=== PATIENT | male | born 1940 | race Hispanic/Latino ===

== ENCOUNTER 2023-05-18 11:47 | Inpatient (IN) | payer OTHER ==
[2023-05-18] MEDS ORDERED: METOPROLOL TARTRATE 5 MG/5 ML INJ IV ONE (12:03)
[2023-05-18] MEDS ORDERED: NA CHLORIDE 0.9% 500 ML ONE (12:04)
[2023-05-18 12:37] LABS: Absolute Lymphocytes (CBC) 0.6 K/uL (0.7-4.9); Absolute Monocytes 1.4 K/uL (0.1-1.3); Absolute Neutrophil 13.1 K/uL (1.8-8.0); Basophils % 0.3 % (0-1.3); Hematocrit 30.7 % (39.6-49.0); Hemoglobin 9.8 g/dL (13.6-17.9); Lymphocytes % 3.9 % (15.3-44.8); MCH 27.6 pg (27.0-35.0); MCHC 31.8 g/dL (32.0-36.0); MCV 86.7 fL (80-100); MPV 8.5 fL (7.6-11.3); Monocytes % 9.2 % (3.3-12.3); Neutrophils % 86.6 % (41.7-73.7); Platelets 160 thou/uL (152-406); RBC Red Blood Cell Count 3.54 M/uL (4.33-5.43); Red Cell Distribution Width 18.9 % (12.1-15.2)
--- NOTE | 2023-05-18 12:51 | RAD REPORT ---
EXAM DESCRIPTION: RAD - Chest Single View - 05/18/2023 12:37 pm CLINICAL HISTORY: weakness Chest pain. COMPARISON: No comparisons FINDINGS: Portable technique limits examination quality. The lungs are grossly clear. The heart is moderately enlarged. No displaced fractures.Multi lead pace r device is present. IMPRESSION: No acute intrathoracic process suspected.
[2023-05-18 12:54] LABS: Albumin 2.7 g/dL (3.4-5.0); Albumin/Globulin Ratio 0.7 (1.1-1.8); Anion Gap 7.5 mEq/L (5.0-15.0); Bilirubin Direct 0.5 mg/dL (0-0.2); Bilirubin Indirect, Calculated 0.9 mg/dL (0.2-0.8); Bilirubin Total 1.4 mg/dL (0.2-1.0); Globulin 3.9 g/dL (2.3-3.5); Magnesium 2.1 mg/dL (1.6-2.4); Potassium 3.5 mEq/L (3.5-5.1); Protein, Total 6.6 g/dL (6.4-8.2)
[2023-05-18 13:33] LABS: White Blood Cell Scan OK (OK)
[2023-05-18 13:34] LABS: Blood Morphology Comment NOT SEEN (NOT SEEN); Platelet Estimate ADEQ
[2023-05-18] MEDS ORDERED: AMIODARONE HCL 150 MG/3 ML INJ IV ONE (13:39)
[2023-05-18] MEDS ORDERED: AMIODARONE IN DEXTROSE,ISO-OSM 360 MG/200 ML BAG IV ONE ×2 (13:39→19:30)
[2023-05-18] MEDS ORDERED: D5W 100 ML IV ONE (13:41)
[2023-05-18] MEDS ORDERED: ACETAMINOPHEN 500 MG TAB PO PRN (14:24)
[2023-05-18] MEDS ORDERED: ONDANSETRON 4 MG/2 ML VIAL IV PRN (14:24)
--- NOTE | 2023-05-18 14:29 | EDPHYS ---
Physician Documentation [facility] Name: Inderjit Yusuf Age: 83 yrs Sex: Male : 1940 Arrival Date: 05/18/2023 Time: 11:47 Bed 3 Private MD: ED Physician Isrrael Salas HPI: 05/17 14:21 This 83 yrs old Male presents to ER via EMS with complaints of General rt Weakness. 14:21 Patient presents to the ED with generalized weakness. Does have a history of A-fib. rt Denies shortness of breath, chest pain. This occurred about 2 weeks following a biopsy of the prostate, is been progressively worsening. Denies other acute complaints at this time, symptoms are moderate severity, no other aggravating or alleviating factors.. Historical: - Allergies: 11:55 No Known Allergies; rs5 - Home Meds: 12:31 Amiodarone Oral [Active]; Aspirin Oral [Active]; Bumetanide Oral [Active]; Benadryl ph Oral [Active]; Eliquis oral [Active]; levothyroxine oral [Active]; Lisinopril Oral [Active]; Metoprolol Tartrate Oral [Active]; Potassium Chloride Oral [Active]; - PMHx: 11:55 Hypertensive disorder; Congestive heart failure; Atrial fibrillation; rs5 - PSHx: 11:55 Pacemaker 2 months ago; rs5 - Immunization history:: Adult Immunizations up to date. - Infectious Disease History:: Denies. - Social history:: Smoking status: Patient denies any tobacco usage or history of. - Family history:: not pertinent. ROS: 14:21 Constitutional: Negative for fever, chills, and weight loss, Cardiovascular: Negative rt for chest pain, palpitations, and edema, Respiratory: Negative for shortness of breath, cough, wheezing, and pleuritic chest pain, Abdomen/GI: Negative for abdominal pain, nausea, vomiting, diarrhea, and constipation, MS/Extremity: Negative for injury and deformity, Skin: Negative for injury, rash, and discoloration, Psych: Negative for depression, anxiety, suicide ideation, homicidal ideation, and hallucinations, 14:21 Neuro: Positive for weakness, Negative for altered mental status, Exam: 14:21 Constitutional: This is a well developed, well nourished patient who is awake, alert, rt and in no acute distress. Head/Face: Normocephalic, atraumatic. Chest/axilla: Normal chest wall appearance and motion. Nontender with no deformity. No lesions are appreciated. Cardiovascular: Regular rate and rhythm with a normal S1 and S2. No gallops, murmurs, or rubs. Normal PMI, no JVD. No pulse deficits. Respiratory: Lungs have equal breath sounds bilaterally, clear to auscultation and percussion. No rales, rhonchi or wheezes noted. No increased work of breathing, no retractions or nasal flaring. Abdomen/GI: Soft, non-tender, with normal bowel sounds. No distension or tympany. No guarding or rebound. No evidence of tenderness throughout. Skin: Warm, dry with normal turgor. Normal color with no rashes, no lesions, and no evidence of cellulitis. MS/ Extremity: Pulses equal, no cyanosis. Neurovascular intact. Full, normal range of motion. Neuro: Awake and alert, GCS 15, oriented to person, place, time, and situation. Cranial nerves II-XII grossly intact. Motor strength 5/5 in all extremities. Sensory grossly intact. Cerebellar exam normal. Normal gait. 14:23 ECG was reviewed by the Attending Physician. rt Vital Signs: 11:55 BP 110 / 80; Pulse 155; Resp 18; rs5 12:22 BP 102 / 71; Pulse 104; Resp 18; Pulse Ox 98% on R/A; ph 12:55 BP 116 / 77; Pulse 104; Resp 16; Pulse Ox 99% ; ko1 13:50 BP 102 / 84; Pulse 124; Resp 24; Pulse Ox 100% ; ko1 MDM: 11:55 Patient medically screened. rt 14:29 Differential Diagnosis A-fib, anemia, electrolyte disturbance. Data reviewed: vital rt signs, nurses notes, lab test result(s), EKG, radiologic studies. Consideration of Admission/Observation Patient was admitted/placed on observation. Management of patient was discussed with the following: Hospitalist: Agrees to admit. I considered the following discharge prescriptions or medication management in the emergency department Medications were administered in the Emergency Department. See MAR. Independent interpretation of the following test(s) in the Emergency Department X-Ray: My interpretation is No consolidation seen on my interpretation of x-ray images. Care significantly affected by the following chronic conditions: Atrial fibrillation. Counseling: I had a detailed discussion with the patient and/or guardian regarding the historical points, exam findings, and any diagnostic results supporting the discharge/admit diagnosis, lab results, radiology results, the need for further work-up and treatment in the hospital. Response to treatment: the patient's symptoms have mildly improved after treatment. 05/17 12:04 Order name: Basic Metabolic Panel; Complete Time: 13:06 rt 05/17 12:04 Order name: CBC with Diff; Complete Time: 14:03 rt 05/17 12:04 Order name: LFT's; Complete Time: 13:06 rt 05/17 12:04 Order name: Magnesium; Complete Time: 13:06 rt 05/17 12:04 Order name: Troponin HS; Complete Time: 13:06 rt 05/17 12:04 Order name: BNP; Complete Time: 13:06 rt 05/17 12:04 Order name: UAM; Complete Time: 20:34 rt 05/17 12:49 Order name: CBC Smear Scan; Complete Time: 14:03 EDMS 05/17 14:34 Order name: Thyroid Stimulating Hormone; Complete Time: 20:34 EDMS 05/17 14:34 Order name: Basic Metabolic Panel EDMS 05/17 14:34 Order name: Basic Metabolic Panel EDMS 05/17 14:34 Order name: Basic Metabolic Panel EDMS 05/17 14:34 Order name: Basic Metabolic Panel EDMS 05/17 14:34 Order name: Basic Metabolic Panel EDMS 05/17 14:34 Order name: CBC with Automated Diff EDMS 05/17 14:34 Order name: CBC with Automated Diff EDMS 05/17 14:34 Order name: CBC with Automated Diff EDMS 05/17 14:34 Order name: CBC with Automated Diff EDMS 05/17 14:34 Order name: CBC with Automated Diff EDMS 05/17 14:34 Order name: Lipid Profile EDMS 05/17 14:34 Order name: Lipid Profile EDMS 05/17 14:34 Order name: Magnesium EDMS 05/17 14:34 Order name: Magnesium EDMS 05/17 14:34 Order name: Magnesium EDMS 05/17 14:34 Order name: Magnesium EDMS 05/17 14:34 Order name: Magnesium EDMS 05/17 14:34 Order name: NT PRO-BNP EDMS 05/17 14:34 Order name: NT PRO-BNP EDMS 05/17 14:34 Order name: NT PRO-BNP EDMS 05/17 14:34 Order name: NT PRO-BNP EDMS 05/17 14:34 Order name: NT PRO-BNP EDMS 05/17 14:34 Order name: Troponin High Sensitivity EDMS 05/17 14:34 Order name: Troponin High Sensitivity; Complete Time: 20:34 EDMS 05/17 14:34 Order name: Troponin High Sensitivity EDMS 05/17 14:34 Order name: Troponin High Sensitivity EDMS 05/17 19:48 Order name: T4 Free; Complete Time: 20:34 EDMS 05/18 14:13 Order name: Cortisol EDMS 05/17 12:04 Order name: XRAY Chest (1 view); Complete Time: 12:53 rt 05/18 12:07 Order name: US EDMS 05/17 14:26 Order name: CONS Physician Consult EDMS 05/17 14:33 Order name: EKG Electrocardiogram EDMS 05/17 14:34 Order name: EKG Electrocardiogram EDMS 05/17 14:34 Order name: EKG Electrocardiogram EDMS 05/17 14:34 Order name: EKG Electrocardiogram EDMS 05/17 12:04 Order name: Cardiac monitoring; Complete Time: 12:09 rt 05/17 12:04 Order name: EKG - Nurse/Tech; Complete Time: 12:21 rt 05/17 12:04 Order name: IV Saline Lock; Complete Time: 12:10 rt 05/17 12:04 Order name: Labs collected and sent; Complete Time: 12:21 rt 05/17 12:04 Order name: O2 Per Protocol; Complete Time: 12:09 rt 05/17 12:04 Order name: O2 Sat Monitoring; Complete Time: 12:09 rt EC:23 Rate is 151 beats/min. Rhythm is irregularly irregular, A fib with No ectopy, Right rt related ST and T wave changes. QRS [place] is Normal. QRS interval is normal. QT interval is normal. No Q waves. Administered Medications: 12:10 Drug: NS 0.9% IV 500 ml IV at bolus once Route: IV; Rate: bolus; Site: right forearm; ph 12:40 Follow up: IV Intake: 500ml ; administered by previous nurse vc1 12:40 Follow up: IV Status: Completed infusion; IV Intake: 500ml vc1 12:10 Drug: Metoprolol IVP 5 mg IVP every 5 minutes; Hold for SBP < 100 or HR < 60. x3 Route: ph IVP; Site: right forearm; 12:21 Drug: Metoprolol IVP 5 mg IVP every 5 minutes; Hold for SBP < 100 or HR < 60. x3 Route: ph IVP; Site: right forearm; 22:11 Follow up: Response: No adverse reaction; No change in condition vc1 13:46 Drug: amiodarone IVPB 150 mg 100 ml IVPB once over 10 mins; (mix in D5W) Volume: 100 ko1 ml; Route: IVPB; Infused Over: 10 mins; Site: right forearm; 22:10 Follow up: IV Status: Completed infusion; administered by previous shift; no change in vc1 condition 13:57 Drug: amiodarone IVPB 900 mg, D5W IV 500 ml IVPB at 1 mg/min continuous; for 6 hrs, ko1 then change to 0.5 mg/min Route: IVPB; Rate: 1 mg/min; Site: right forearm; 19:00 Follow up: IV Status: Infusion continued upon admission vc1 Disposition Summary: 05/18/23 14:28 Hospitalization Ordered Notes: Hospitalization Status: Inpatient Admission rt Provider: Stephanie Melendrez rt Condition: Fair rt Problem: an acute exacerbation rt Symptoms: have improved rt Bed/Room Type: Standard rt Location: Intensive Care Unit(05/19/23 15:10) bd Room Assignment: 3-(05/19/23 15:10) bd Diagnosis - Atrial fibrillation with rapid ventricular rate rt Forms: - Medication Reconciliation Form rt - SBAR form rt - Leadership Thank You Letter rt Critical care time excluding procedures: 14:34 Critical care time: Bedside Care: 30 minutes, Consultation: 5 minutes. Total time: 35 rt minutes Signatures: Dispatcher [employer] Aggie Puri Patricia, RN RN ph Rae Parrish RN RN ko1 Isrrael Salas MD MD rt Dante Morales RN RN rs5 Arlene Prince RN vc1 Corrections: (The following items were deleted from the chart) 12:04 12:04 BASIC METABOLIC PANEL+C.LAB.BRZ ordered. EDMS EDMS 12:04 12:04 CBC+H.LAB.BRZ ordered. EDMS EDMS 12:04 12:04 HEPATIC FUNCTION+C.LAB.BRZ ordered. EDMS EDMS 12:04 12:04 MAGNESIUM+C.LAB.BRZ ordered. EDMS EDMS 12:04 12:04 Troponin High Sensitivity+C.LAB.BRZ ordered. EDMS EDMS 12:04 12:04 PROBNP+C.LAB.BRZ ordered. EDMS EDMS 12:04 12:04 Urinalysis W/Microscopic+U.LAB.BRZ ordered. EDMS EDMS 12:04 12:04 Chest Single View+RAD.RAD.BRZ ordered. EDMS EDMS 18:38 14:28 Intensive Care Unit rt bd 18:38 14:28 rt bd 05/18 15:10 05/17 18:38 BR ER HOLD bd bd 05/18 15:10 05/17 18:38 ERHOLD- bd bd
--- NOTE | 2023-05-18 14:29 | ER ---
Nurse's Notes [facility] Name: Inderjit Yusuf Age: 83 yrs Sex: Male : 1940 Arrival Date: 05/18/2023 Time: 11:47 Bed 3 Private MD: Diagnosis: Atrial fibrillation with rapid ventricular rate Presentation: 05/17 11:55 Chief complaint: EMS states: Complains of generalized weakness that started post rs5 prostate biopsy 2 weeks ago. Pt had a pacemaker inserted 2 months ago. 11:55 Coronavirus screen: At this time, the client does not indicate any symptoms associated rs5 with coronavirus-19. Ebola Screen: No symptoms or risks identified at this time. Initial Sepsis Screen: Does the patient meet any 2 criteria? No. Patient's initial sepsis screen is negative. Does the patient have a suspected source of infection? No. Patient's initial sepsis screen is negative. Risk Assessment: Do you want to hurt yourself or someone else? Patient reports no desire to harm self or others. Onset of symptoms was May 18, 2023. 11:55 Method Of Arrival: EMS: [place] [id number] 11:55 Acuity: SARITA 2 rs5 12:07 Acuity: SARITA 2 iw 12:08 Coronavirus screen: Vaccine status: Patient reports receiving the 2nd dose of the covid ph vaccine. Ebola Screen: No symptoms or risks identified at this time. Initial Sepsis Screen: Does the patient meet any 2 criteria? No. Patient's initial sepsis screen is negative. Does the patient have a suspected source of infection? No. Patient's initial sepsis screen is negative. Risk Assessment: Do you want to hurt yourself or someone else? Patient reports no desire to harm self or others. 12:08 Method Of Arrival: EMS: [place] [facility] Historical: - Allergies: 11:55 No Known Allergies; rs5 - Home Meds: 12:31 Amiodarone Oral [Active]; Aspirin Oral [Active]; Bumetanide Oral [Active]; Benadryl ph Oral [Active]; Eliquis oral [Active]; levothyroxine oral [Active]; Lisinopril Oral [Active]; Metoprolol Tartrate Oral [Active]; Potassium Chloride Oral [Active]; - PMHx: 11:55 Hypertensive disorder; Congestive heart failure; Atrial fibrillation; rs5 - PSHx: 11:55 Pacemaker 2 months ago; rs5 - Immunization history:: Adult Immunizations up to date. - Infectious Disease History:: Denies. - Social history:: Smoking status: Patient denies any tobacco usage or history of. - Family history:: not pertinent. Screenin:23 [facility] ED Fall Risk Assessment (Adult) History of falling in the last 3 months, ph including since admission No falls in past 3 months (0 pts) Confusion or Disorientation No (0 pts) Intoxicated or Sedated No (0 pts) Impaired Gait Yes (1 pt) Mobility Assist Device Used Yes (1 pt) Altered Elimination No (0 pt) Score/Fall Risk Level 0 - 2 = Low Risk Oriented to surroundings, Maintained a safe environment, Hourly rounding (assess needs \T\ fall precautionary measures) done. Abuse screen: Denies threats or abuse. Denies injuries from another. Nutritional screening: No deficits noted. Tuberculosis screening: No symptoms or risk factors identified. Assessment: 12:30 General: Appears in no apparent distress. Behavior is calm, cooperative. Pain: Denies ph pain. Neuro: Level of Consciousness is awake, alert, obeys commands, Oriented to person, place, time, situation. Cardiovascular: Reports fatigue, lightheadedness, Capillary refill < 3 seconds in bilateral fingers Patient's skin is warm and dry. Rhythm is atrial fibrillation with rapid ventricular response. Respiratory: Airway is patent Respiratory effort is even, unlabored. Derm: Skin is dry, Skin is pale. Musculoskeletal: Circulation, motion, and sensation intact. Range of motion: intact in all extremities. 05/18 12:23 Reassessment: Myranda Major - [phone]. ld1 Vital Signs: 04 11:55 BP 110 / 80; Pulse 155; Resp 18; rs5 12:22 BP 102 / 71; Pulse 104; Resp 18; Pulse Ox 98% on R/A; ph 12:55 BP 116 / 77; Pulse 104; Resp 16; Pulse Ox 99% ; ko1 13:50 BP 102 / 84; Pulse 124; Resp 24; Pulse Ox 100% ; ko1 Vitals: 12:22 Cardiac Rhythm Assessment Atrial fibrillation. ph ED Course: 11:54 Patient arrived in ED. iw 11:55 Isrrael Salas MD is Attending Physician. rt 12:07 Triage completed. iw 12:08 Jennifer Smart, RN is Primary Nurse. ph 12:22 Initial lab(s) drawn, by me, sent to lab. Maintain EMS IV. Dressing intact. Good blood ph return noted. Site clean \T\ dry. Gauge \T\ site: 20 RFA. 12:23 Patient has correct armband on for positive identification. Bed in low position. Call ph light in reach. Side rails up X2. Client placed on continuous cardiac and pulse oximetry monitoring. NIBP monitoring applied. monitor tech on. Door closed. Noise minimized. Warm blanket given. 12:31 Arm band placed on Patient placed in an exam room. ph 12:39 XRAY Chest (1 view) In Process Unspecified. EDMS 13:50 No provider procedures requiring assistance completed. ko1 13:50 Provided Education on: na. ko1 14:27 Stephanie Melendrez MD is Hospitalizing Provider. rt 14:30 Patient admitted, IV remains in place. ko1 19:22 Inserted saline lock: 22 gauge in left forearm, using aseptic technique. ty 05/18 07:02 Primary Nurse role handed off by Jennifer Smart, RN bd 08:02 Diet tray given. jg11 12:44 Diet tray given. jg11 Administered Medications: 04 12:10 Drug: NS 0.9% IV 500 ml IV at bolus once Route: IV; Rate: bolus; Site: right forearm; ph 12:40 Follow up: IV Intake: 500ml ; administered by previous nurse vc1 12:40 Follow up: IV Status: Completed infusion; IV Intake: 500ml vc1 12:10 Drug: Metoprolol IVP 5 mg IVP every 5 minutes; Hold for SBP < 100 or HR < 60. x3 Route: ph IVP; Site: right forearm; 12:21 Drug: Metoprolol IVP 5 mg IVP every 5 minutes; Hold for SBP < 100 or HR < 60. x3 Route: ph IVP; Site: right forearm; 22:11 Follow up: Response: No adverse reaction; No change in condition vc1 13:46 Drug: amiodarone IVPB 150 mg 100 ml IVPB once over 10 mins; (mix in D5W) Volume: 100 ko1 ml; Route: IVPB; Infused Over: 10 mins; Site: right forearm; 22:10 Follow up: IV Status: Completed infusion; administered by previous shift; no change in vc1 condition 13:57 Drug: amiodarone IVPB 900 mg, D5W IV 500 ml IVPB at 1 mg/min continuous; for 6 hrs, ko1 then change to 0.5 mg/min Route: IVPB; Rate: 1 mg/min; Site: right forearm; 19:00 Follow up: IV Status: Infusion continued upon admission vc1 Medication: 12:23 VIS not applicable for this client. ph Intake: 12:40 IV: 500ml; Total: 500ml. vc1 12:40 IV: 500ml; Total: 1000ml. vc1 Outcome: 14:28 Decision to Hospitalize by Provider. rt 14:30 Admitted to ER Hold. [facility] documentation. ko1 14:30 Condition: stable 14:30 Instructed on the need for admit, 05/18 16:27 Patient left the ED. ld1 Signatures: Dispatcher [employer] EDMS Aggie Wilson Irene, RN RN iw Jennifer Smart RN RN Rosalia Buckley RN RN ld1 Arlene Prince RN RN vc1 Rae Parrish RN RN ko1 Isrrael Salas MD MD rt Dante Morales RN RN Tho [facility] [place] [place] Tony Olivo Corrections: (The following items were deleted from the chart) 05/17 12:21 11:00 NS 0.9% IV 500 ml IV at bolus in right forearm ph ph
--- NOTE | 2023-05-18 14:34 | P.HP ---
Certification for Inpatient Patient admitted to: Inpatient With expected LOS: <2 Midnights <Zarina Troy - Last Filed: 05/18/23 16:32> Patient History Date of Service: 05/18/23 Reason for admission: A-fib RVR History of Present Illness: 83-year-old with a past medical history of A-fib RVR on Eliquis, with permanent pacemaker, congestive heart failure, hypothyroidism hypertension, hyperlipidemia, primary urethral carcinoma, presents to the emergency room with generalized weakness. He reports weakness x 4 weeks, progressively getting worse, he reports shortness of breath, worse with exertion. He reports bilateral lower extremity edema +1-2 work worse over the last couple weeks. He reports lives with his daughter, ambulates with a cane at baseline. ER evaluation patient was EKG A-fib rate 160, treated with metoprolol IV push, ineffective, started on amiodarone drip. No reported chest pain, abdominal pain, fever, nausea vomiting diarrhea, dizziness. Plan to admit for A-fib RVR with uncontrolled rate, acute on chronic heart failure, dyspnea secondary to decompensated heart failure. With cardiology to consult. Laboratory evaluation acute kidney injury unknown baseline BUN 1.31 estimated GFR 54 elevated BNP 95409, initial troponin normal at 41, leukocytosis 15.10, microcytic anemia 9.1 30.7, left shift 86.6, chest x-ray no acute intrathoracic process moderate cardiomegaly multilead pacer device present - Past Medical/Surgical History -: A-fib RVR -: Chronic anticoagulation Eliquis 5 mg twice daily -: Hypertension -: Hyperlipidemia -: Primary urethral carcinoma -: Permanent pacemaker - Family History Family History: Reviewed- Non-Contributory - Social History Smoking Status: Never smoker Alcohol use: No CD- Drugs: Yes Caffeine use: No Place of Residence: Home <Zarina Troy - Last Filed: 05/18/23 16:32> Date of Service: 05/18/23 <Stephanie Melendrez - Last Filed: 05/21/23 10:18> Allergies No Known Allergies Allergy (Unverified 05/18/23 14:46) Review of Systems PER HPI <Zarina Troy - Last Filed: 05/18/23 16:32> Physical Examination - Physical Exam General: Alert, In no apparent distress, Oriented x3 HEENT: Atraumatic, Normocephalic Neck: Supple, 2+ carotid pulse no bruit Respiratory: Normal air movement, Crackles/rales Cardiovascular: Irregular heart rate/rhythm Capillary refill: <2 Seconds Gastrointestinal: Normal bowel sounds, Soft and benign Musculoskeletal: No clubbing, No swelling Integumentary: Other (+1 lower extremity edema) Neurological: Normal speech, Sensation intact - Studies Laboratory Data (last 24 hrs) 05/18/23 05/18/23 12:20 12:20 WBC 15.10 H Hgb 9.8 L Hct 30.7 L Plt Count 160 Sodium 134 L Potassium 3.5 BUN 16 Creatinine 1.31 H Glucose 113 H Magnesium 2.1 Total Bilirubin 1.4 H AST 25 ALT 31 Alkaline Phosphatase 57 <Zarina Troy - Last Filed: 05/18/23 16:32> Assessment and Plan - Plan Assessment plan A-fib RVR uncontrolled rate Chronic anticoagulation History of a permanent pacemaker Admit to ICU, cardiology consult, amiodarone drip, IV metoprolol, resume p.o. medications. Acute on chronic heart failure unknown based Elevated BNP Echo ordered No reported chest pain, abdominal pain, fever, nausea vomiting diarrhea, dizziness. Plan to admit for A-fib RVR with uncontrolled rate, acute on chronic heart failure, dyspnea secondary to decompensated heart failure. With cardiology to consult. presents to the emergency room with generalized weakness. He reports weakness x 4 weeks, progressively getting worse, he reports shortness of breath, worse with exertion. He reports bilateral lower extremity edema +1-2 work worse over the last couple weeks. He reports lives with his daughter, ambulates with a cane at baseline. ER evaluation patient was EKG A-fib rate 160, treated with metoprolol IV push, ineffective, started on amiodarone drip. elevated BNP 72023, -> diuresis as tolerated initial troponin normal at 41,-> chest x-ray no acute intrathoracic process moderate cardiomegaly multilead pacer device present hypothyroidism hypertension hyperlipidemia primary urethral carcinoma Acute kidney injury Unknown baseline BUN 1.31 estimated GFR 54 Nephrology consult leukocytosis likely reactive to decompensated heart failure WBC 15.10, left shift 86.6 Trend WBCs empiric microcytic anemia Hemoglobin 9.1 30.7 Full code DVT resume Eliquis Diet cardiac Disposition Home with daughter, ambulates with a cane at baseline Discharge Plan: Home - Advance Directives Does patient have a Living Will: No Does patient have a Durable POA for Healthcare: No - Code Status/Comfort Care Code Status: Full Code Critical Care: Yes Time Spent Managing Pts Care (In Minutes): 65 <Zarina Troy - Last Filed: 05/18/23 16:32> Date of Service: 05/18/23 Patient chart was reviewed and patient was seen and examined. AZUL history and physical reviewed as well. Agree with the assessment and plan. Patient presented with atrial fibrillation patient's rate controlled on amiodarone drip along with digoxin and beta-charleen therapy. Most of the MDM was done by myself and plan of care was discussed with AZUL. Plan to discharge when cardiology agreeable-anticipated length of stay is 3 to 4 days. <Stephanie Melendrez - Last Filed: 05/21/23 10:18>
[2023-05-18] MEDS ORDERED: AMIODARONE HCL 450 MG in D5W 241 ML IV SCH (15:00)
[2023-05-18] MEDS ORDERED: AMIODARONE HCL 900 MG in Dextrose 5%-Water 482 ML IV SCH (15:00)
[2023-05-18 16:47] LABS: Sqamous Epithelial <5 /HPF (None Seen); Urine Bacteria >50 /HPF (<20); Urine Culture Reflex Order REFLEXED; Urine Micro Reflex YN NO BILL MICROSCOPIC; Urine Mucus Slight /HPF (None Seen); Urine RBC >50 /HPF (None Seen); Urine WBC >50 /HPF (<5)
[2023-05-18 16:48] LABS: Specific Gravity 1.012 (1.005-1.030); Urine Bilirubin NEGATIVE (Negative); Urine Blood 3+ (OVER) (Negative); Urine Clarity Extremely Turbid (Clear); Urine Color Yellow (Yellow); Urine Glucose NEGATIVE (Negative); Urine Ketones NEGATIVE (Negative); Urine Nitrite NEGATIVE (Negative); Urine Protein 2+ (Negative); Urine Urobilinogen Normal (Normal)
[2023-05-18] MEDS ORDERED: CEFTRIAXONE 1000 MG/VIAL ONE (16:54)
[2023-05-18] MEDS ORDERED: NA CHLORIDE 0.9% 50 ML ONE (16:55)
[2023-05-18] MEDS ORDERED: FUROSEMIDE 40 MG/4 ML VIAL ONE (16:55)
[2023-05-18] MEDS: AMIODARONE HCL 900 MG in Dextrose 5%-Water 482 ML IV SCH (19:30)
[2023-05-18 19:34] LABS: Thyroid Stimulating Hormone 4.52 uIU/mL (0.358-3.740)
[2023-05-18] MEDS: FUROSEMIDE 40 MG/4 ML VIAL IV ONE (19:54)
[2023-05-18] MEDS: CEFTRIAXONE 1,000 MG in NA CHLORIDE 0.9% 50 ML IVPB SCH (19:54)
[2023-05-18] MEDS ORDERED: METOPROLOL TARTRATE 5 MG/5 ML INJ IV PRN (20:11)
[2023-05-18] MEDS: METOPROLOL TAR 50 MG TAB PO SCH (20:23)
[2023-05-18] MEDS: APIXABAN 5 MG TABLET PO SCH (20:23)
[2023-05-18] MEDS: METOPROLOL TARTRATE 5 MG/5 ML INJ IV STA (20:35)
[2023-05-18 20:42] VITALS: BMI 36.9
[2023-05-19 05:17] LABS: Absolute Basophils 0.1 K/uL (0-0.5); Absolute Lymphocytes (CBC) 0.8 K/uL (0.7-4.9); Absolute Monocytes 0.9 K/uL (0.1-1.3); Absolute Neutrophil 13.7 K/uL (1.8-8.0); Basophils % 0.3 % (0-1.3); Eosinophils % 0.1 % (0-4.4); Hematocrit 32.7 % (39.6-49.0); Hemoglobin 10.2 g/dL (13.6-17.9); Lymphocytes % 5.4 % (15.3-44.8); MCH 27.1 pg (27.0-35.0); MCHC 31.4 g/dL (32.0-36.0); MCV 86.5 fL (80-100); MPV 8.7 fL (7.6-11.3); Monocytes % 5.8 % (3.3-12.3); Platelets 157 thou/uL (152-406); RBC Red Blood Cell Count 3.78 M/uL (4.33-5.43); Red Cell Distribution Width 19.1 % (12.1-15.2)
[2023-05-19 05:21] LABS: Neutrophils % 88.4 % (41.7-73.7)
[2023-05-19 05:32] LABS: Anion Gap 10.4 mEq/L (5.0-15.0); Magnesium 2.1 mg/dL (1.6-2.4); Potassium 3.4 mEq/L (3.5-5.1)
[2023-05-19] MEDS ORDERED: AMIODARONE IN DEXTROSE,ISO-OSM 360 MG/200 ML BAG IV ONE (06:17)
[2023-05-19] MEDS ORDERED: APIXABAN 5 MG TABLET ONE (07:37)
[2023-05-19] MEDS ORDERED: METOPROLOL TAR 50 MG TAB ONE (07:37)
[2023-05-19] MEDS ORDERED: ASPIRIN 81 MG CHEWABLE TABLET ONE (07:38)
[2023-05-19] MEDS: ASPIRIN 81 MG CHEWABLE TABLET PO SCH (08:31)
[2023-05-19] MEDS: POTASSIUM CL SA 10 MEQ TAB PO SCH (09:00)
[2023-05-19] MEDS: DIGOXIN 0.25 MG/ML AMP IV ONE (09:00)
[2023-05-19] MEDS ORDERED: ASPIRIN 81 MG CHEWABLE TABLET PO SCH (09:00)
[2023-05-19] MEDS: BUMETANIDE 1 MG TABLET PO SCH ×2 (09:00→12:00)
[2023-05-19] MEDS: POTASSIUM CL 40 MEQ in NA CHLORIDE 0.9% 500 ML IV SCH (12:00)
--- NOTE | 2023-05-19 12:07 | RAD REPORT ---
EXAM DESCRIPTION: US - Renal Ultrasound-Complete - 05/19/2023 11:28 am CLINICAL HISTORY: [facility] COMPARISON: No comparisons FINDINGS: Both kidneys are normal in size, shape and echotexture. The right kidney measures 12.2 x 6.2 x 5.8 cm.. There is evidence of a stent present right renal pelv is. No hydronephrosis. The left kidney measures 12.0 x 6.4 x 4.7 cm.. Small benign cortical cyst. No hydronephrosis or focal mass. The urinary bladder is incompletely distended without gross abnormality seen. Evidence of stent mater ial the bladder. Prostate gland appears to project into the bladder base. IMPRESSION: No hydronephrosis, abnormal echogenicity or solid renal mass. Right-sided urinary tract stent is likely present.
[2023-05-19] MEDS ORDERED: DIGOXIN 0.25 MG TABLET ONE (12:22)
[2023-05-19] MEDS ORDERED: POTASSIUM CL SA 10 MEQ TAB PO ONE ×2 (12:23→12:25)
[2023-05-19] MEDS ORDERED: POTASSIUM 25 MEQ EFFERV TAB ONE (12:23)
[2023-05-19] MEDS ORDERED: CEFTRIAXONE 1000 MG/VIAL ONE (13:58)
[2023-05-19] MEDS: CEFTRIAXONE 1,000 MG in NA CHLORIDE 0.9% 50 ML IVPB ONE (14:05)
[2023-05-19] MEDS ORDERED: DIGOXIN 0.25 MG/ML AMP IV SCH (15:00)
--- NOTE | 2023-05-19 15:49 | P.PN ---
Subjective Date of Service: 05/19/23 Chief Complaint: A-fib RVR Admitted with A-fib RVR on amiodarone drip, no reported chest pain, palpitations. Physical Exam General: Alert, In no apparent distress, Oriented x3 HEENT: Atraumatic, Normocephalic Neck: Supple, 2+ carotid pulse no bruit Respiratory: Normal air movement, Crackles/rales Cardiovascular: Irregular heart rate/rhythm Capillary refill: <2 Seconds Gastrointestinal: Normal bowel sounds, Soft and benign Musculoskeletal: No clubbing, No swelling Integumentary: Other (+1 lower extremity edema) Neurological: Normal speech, Sensation intact <Zarina Troy - Last Filed: 05/19/23 15:50> Date of Service: 05/19/23 <Stephanie Melendrez - Last Filed: 05/21/23 10:21> Review of Systems Per HPI <Zarina Troy - Last Filed: 05/19/23 15:50> Physical Examination - Vital Signs Temperature: 98.4 F Blood Pressure: 124/90 Pulse: 109 Respirations: 19 Pulse Ox (%): 98 <Zarina Troy - Last Filed: 05/19/23 15:50> Assessment And Plan - Plan Assessment plan A-fib RVR uncontrolled rate Chronic anticoagulation History of a permanent pacemaker Admit to ICU, cardiology consult, amiodarone drip, IV metoprolol, resume p.o. medications. NSTEMI Acute on chronic heart failure unknown based Elevated BNP Echo ordered No reported chest pain, abdominal pain, fever, nausea vomiting diarrhea, dizziness. Plan to admit for A-fib RVR with uncontrolled rate, acute on chronic heart failure, dyspnea secondary to decompensated heart failure. With cardiology to consult. presents to the emergency room with generalized weakness. He reports weakness x 4 weeks, progressively getting worse, he reports shortness of breath, worse with exertion. He reports bilateral lower extremity edema +1-2 work worse over the last couple weeks. He reports lives with his daughter, ambulates with a cane at baseline. ER evaluation patient was EKG A-fib rate 160, treated with metoprolol IV push, ineffective, started on amiodarone drip. elevated BNP 00178, -> diuresis as tolerated, repeat 61128 initial troponin normal at 41,-> 59, 65, 84, chest x-ray no acute intrathoracic process moderate cardiomegaly multilead pacer device present hypothyroidism hypertension hyperlipidemia primary urethral carcinoma Acute kidney injury Unknown baseline secondary to prerenal CHF, versus diuretic use BUN 1.31 estimated GFR 54 Nephrology consulted for diuresis leukocytosis likely reactive to decompensated heart failure WBC 15.10, left shift 86.6 Trend WBCs empiric microcytic anemia Hemoglobin 9.1 30.7 Full code DVT resume Eliquis Diet cardiac Disposition Home with daughter, ambulates with a cane at baseline Discharge Plan: Home - Code Status/Comfort Care Code Status: Full Code Critical Care: Yes Time Spent Managing PTS Care (In Minutes): 55 <Zarina Troy - Last Filed: 05/19/23 15:50> Date of Service: 05/19/23 Patient chart was reviewed and patient was seen and examined. AZUL history and physical reviewed as well. Agree with the assessment and plan. Patient presented with atrial fibrillation and we continued on amiodarone drip. Patient's rate is better controlled. We added digoxin and beta-charleen therapy.. Most of the MDM was done by myself and plan of care was discussed with AZUL as well as the patient. Plan to discharge in 48 hours. Will switch over to oral medications in the a.m. Plan of care was discussed with cardiology. <Stephanie Melendrez - Last Filed: 05/21/23 10:21>
--- NOTE | 2023-05-19 15:54 | CON ---
Date of Consultation: 05/19/2023 Reason For Consultation: Elevated BUN and creatinine. History Of Present Illness: This is a pleasant 83-year-old gentleman with significant past medical h istory of atrial fibrillation, status post ICD, congestive heart failure, diastolic dysfunction, hype rtension, bladder tumor status post resection 1 week ago. Follow up with Urology. According to the patient, he had the surgery almost 10 days ago for the bladder tumor. Since then, the patient starte d having weakness and fatigue. For that reason, the daughter was approached, found to have atrial fi brillation with RVR. The patient denied any shortness of breath. No orthopnea. The patient denied any chest pain. Upon arrival to the hospital, found to have elevation in creatinine 1.4 with GFR of 48. For that reason, we have been consulted the patient denied taking any nonsteroidal. No recent I V contrast. Past Medical History: Include: 1.Hypertension. 2.Hyperlipidemia. 3.Bladder tumor. 4.Hematuria. 5.Atrial fibrillation. 6.Congestive heart failure. Allergies: NO KNOWN DRUG ALLERGY. Family History: Positive for hypertension. Social History: Denied smoking. Denied drinking. Denied drugs abuse. Review of Systems: Head and Neck: No red eye. No ear pain. Gastrointestinal: No nausea. No vomiting. : Has hematuria. IT PROJECT COORDINATOR: Not applicable. Respiratory: No shortness of breath. Cardiovascular: No chest pain. Endocrine: No polydipsia. Skin: No rash. Neuro: Generalized weakness. Musculoskeletal: Fatigue. Physical Examination: Vital Signs: When I saw the patient, blood pressure 104/93, pulse of 111 and irregular. Chest: Clear to auscultation. Heart: S1 and S2, regular. Abdomen: Soft, nontender. Extremity: No edema. Neurologic: Alert. No focality. Laboratory Data: Sodium 134, potassium 3.5, bicarb 26, BUN 16, creatinine 1.3, GFR of 54. Today lab data; sodium 132, potassium 3.4, bicarb 25, BUN 21, creatinine 1.4, GFR of 48. WBC 15.4, hemoglobin 10.2. Urinalysis positive for infection with hematuria. Current Medications: The patient on include: 1.Bumex 1 mg b.i.d. 2.Aspirin. 3.Ceftriaxone. 4.Eliquis. 5.Amiodarone. 6.Digoxin. 7.Metoprolol. Assessment And Plan: 1.Acute kidney injury secondary to prerenal, overdiuresis. I am going to decrease the Bumex to 0.5 mg daily and I am going to go ahead and send for workup. We will send for ultrasound to rule out any obstructive uropathy given the history of bladder tumor and hematuria. I agree with current antibio tic. We will monitor. 2.Hyponatremia, mostly depletional. We will decrease Bumex. We will monitor. We will send for bas ic workup. 3.Hypertension, controlled optimal. 4.Hypokalemia. We will supplement. 5.Urinary tract infection. Continue current antibiotic. We will follow up culture. 6.Atrial fibrillation with rapid ventricular response as by primary and Cardiology. LUBNA Voice ID: [id number] Report ID: [id number]
[2023-05-19] MEDS: DIGOXIN 0.25 MG/ML AMP IV SCH (16:39)
--- NOTE | 2023-05-19 18:14 | P.CNS ---
Date of Consult: 05/19/23 Chief Complaint: A-fib RVR History of Present Illness: Patient with PMH of heart failure, atrial fibrillation, [place] and pacemaker placement presented with worsening SOB, Lower extremity edema and fatigue, generalized weakness, denies chest pain, no syncope, felt heart rate going fast, has been complaint with medications. Allergies No Known Allergies Allergy (Unverified 05/18/23 14:46) Home Medications: Acetaminophen/Diphenhydramine [Tylenol Pm Exstr 500-25Mg Cplt] 1 tab PO BEDTIME 05/18/23 Amiodarone HCl [Pacerone] 200 mg PO DAILY 05/18/23 Apixaban [Eliquis] 5 mg PO BID 05/18/23 Aspirin Chewable [Aspirin Chewable*] 1 tab PO DAILY 05/18/23 Bumetanide [Bumex*] 1 tab PO BID 05/18/23 Levothyroxine [Synthroid] 100 mcg PO [id number] 05/18/23 Lisinopril [Zestril] 5 mg PO DAILY 05/18/23 Potassium Chloride 1 tab PO DAILY 05/18/23 - Past Medical/Surgical History Diabetic: No -: A-fib RVR -: Chronic anticoagulation Eliquis 5 mg twice daily -: Hypertension -: Hyperlipidemia -: Primary urethral carcinoma -: Permanent pacemaker - Social History Alcohol use: No CD- Drugs: Yes Caffeine use: No Place of Residence: Home Review of Systems 10-point ROS is otherwise unremarkable Physical Examination Temp Pulse Resp BP Pulse Ox 98.6 F 112 H 24 H 123/76 99 05/19/23 17:00 05/19/23 18:00 05/19/23 18:00 05/19/23 18:00 05/19/23 18:00 General: Alert, Oriented x3 HEENT: Atraumatic Neck: Supple, JVD not distended Respiratory: Crackles/rales Cardiovascular: Edema, Irregular heart rate/rhythm Gastrointestinal: Normal bowel sounds - Problems (1) Atrial fibrillation with rapid ventricular response Current Visit: Yes Status: Acute Plan: Agree with continuation of IV amiodarone drip. Continue Digoxin load then continue digoxin 0.125 mg daily Continue Metoprolol 100 mg po BID (Hold if systolic BP is less than 100 mmHg) Continue Eliquis 5 mg po BID Patient daughter mention that they were told recently that he have a thrombus in the heart but not sure where so cardioversion is not an option at this time (2) Acute on chronic combined systolic and diastolic heart failure Current Visit: Yes Status: Acute Plan: Continue Bumex 1 mg IV BID. Monitor input and output. Correct electrolytes. (3) S/P TAVR (transcatheter aortic valve replacement) Current Visit: Yes Status: Acute Plan: Echo shows normal functioning valve with mild para valvular leak.
[2023-05-19 19:05] LABS: Specific Gravity 1.013 (1.005-1.030); Sqamous Epithelial <5 /HPF (None Seen); Urine Bacteria <20 /HPF (<20); Urine Bilirubin NEGATIVE (Negative); Urine Blood 3+ (Negative); Urine Clarity Extremely Turbid (Clear); Urine Color Light-Orange (Yellow); Urine Culture Reflex Order REFLEXED; Urine Glucose NEGATIVE (Negative); Urine Ketones NEGATIVE (Negative); Urine Microscopic Reflex YN ORDER UMIC; Urine Nitrite NEGATIVE (Negative); Urine Protein 2+ (Negative); Urine RBC >50 /HPF (None Seen); Urine Urobilinogen Normal (Normal); Urine WBC >50 /HPF (<5)
[2023-05-19 19:06] LABS: UR PROTEIN 178.7 mg/dL (<11.9); Urine Protein/Creatinine Ratio 2.26 ratio (<0.15)
[2023-05-19] MEDS ORDERED: BUMETANIDE 1 MG/4 ML VIAL IV SCH (21:00)
[2023-05-20 04:46] LABS: Absolute Basophils 0.1 K/uL (0-0.5); Absolute Eosinophils 0.1 K/uL (0-0.5); Absolute Lymphocytes (CBC) 1.1 K/uL (0.7-4.9); Absolute Monocytes 0.8 K/uL (0.1-1.3); Absolute Neutrophil 13.5 K/uL (1.8-8.0); Basophils % 0.5 % (0-1.3); Eosinophils % 0.5 % (0-4.4); Hematocrit 34.3 % (39.6-49.0); Hemoglobin 11.1 g/dL (13.6-17.9); Lymphocytes % 6.9 % (15.3-44.8); MCH 27.9 pg (27.0-35.0); MCHC 32.3 g/dL (32.0-36.0); MCV 86.1 fL (80-100); MPV 8.4 fL (7.6-11.3); Monocytes % 5.3 % (3.3-12.3); Nucleated Red Blood Cells % 0.1 % (0-0); Percent Reticulocyte Count 2.26 % (0.4-2.05); Platelets 160 thou/uL (152-406); RBC Red Blood Cell Count 3.99 M/uL (4.33-5.43); Red Cell Distribution Width 18.8 % (12.1-15.2)
[2023-05-20 04:51] LABS: Neutrophils % 86.8 % (41.7-73.7)
[2023-05-20 05:44] LABS: Albumin 2.5 g/dL (3.4-5.0); Anion Gap 6.6 mEq/L (5.0-15.0); Ferritin 102.7 ng/mL (26-388); Magnesium 2.3 mg/dL (1.6-2.4); Phosphorus 2.3 mg/dL (2.5-4.9); Potassium 4.6 mEq/L (3.5-5.1); Uric Acid 3.7 mg/dL (3.5-7.2)
[2023-05-20 05:46] LABS: Thyroid Stimulating Hormone 7.22 uIU/mL (0.358-3.740)
[2023-05-20] MEDS: LEVOTHYROXINE SOD 0.1 MG TAB PO SCH (05:51)
--- NOTE | 2023-05-20 06:28 | P.PN ---
Subjective Date of Service: 05/20/23 Chief Complaint: A-fib RVR Admitted with A-fib RVR on amiodarone drip, evaluated by cardiology, no reported shortness of breath or chest pain, palpitations Physical Exam General: Alert, In no apparent distress, Oriented x3 HEENT: Atraumatic, Normocephalic Neck: Supple, 2+ carotid pulse no bruit Respiratory: Normal air movement, Crackles/rales Cardiovascular: Irregular heart rate/rhythm Capillary refill: <2 Seconds Gastrointestinal: Normal bowel sounds, Soft and benign Musculoskeletal: No clubbing, No swelling Integumentary: Other (+1 lower extremity edema) Neurological: Normal speech, Sensation intact <Zarina Troy - Last Filed: 05/20/23 06:23> Date of Service: 05/20/23 <Stephanie Melendrez - Last Filed: 05/21/23 10:22> Review of Systems Per HPI <Zarina Troy - Last Filed: 05/20/23 06:23> Physical Examination - Vital Signs Temperature: 97.2 F Blood Pressure: 162/89 Pulse: 101 Respirations: 12 Pulse Ox (%): 98 <Zarina Troy - Last Filed: 05/20/23 06:23> Assessment And Plan - Plan Assessment plan A-fib RVR uncontrolled rate Chronic anticoagulation History of a permanent pacemaker Admit to ICU, cardiology consult, amiodarone drip, IV metoprolol, resume p.o. medications. NSTEMI Acute on chronic heart failure unknown based Elevated BNP Echo ordered No reported chest pain, abdominal pain, fever, nausea vomiting diarrhea, dizziness. Plan to admit for A-fib RVR with uncontrolled rate, acute on chronic heart failure, dyspnea secondary to decompensated heart failure. With cardiology to consult. presents to the emergency room with generalized weakness. He reports weakness x 4 weeks, progressively getting worse, he reports shortness of breath, worse with exertion. He reports bilateral lower extremity edema +1-2 work worse over the last couple weeks. He reports lives with his daughter, ambulates with a cane at baseline. ER evaluation patient was EKG A-fib rate 160, treated with metoprolol IV push, ineffective, started on amiodarone drip. elevated BNP 99648, -> diuresis as tolerated, repeat 61377, improving 17.020, Bumex 1 mg twice daily initial troponin normal at 41,-> 59, 65, 84, chest x-ray no acute intrathoracic process moderate cardiomegaly multilead pacer device present hypothyroidism hypertension hyperlipidemia primary urethral carcinoma Acute kidney injury Unknown baseline secondary to prerenal CHF, versus diuretic use BUN 1.31 estimated GFR 54 Nephrology consulted for diuresis leukocytosis likely acute cystitis WBC 15.10, left shift 86.6 Trend WBCs empiric UA, urine culture microcytic anemia Hemoglobin 9.1 30.7 Full code DVT resume Eliquis Diet cardiac Disposition Home with daughter, ambulates with a cane at baseline Discharge Plan: Home - Code Status/Comfort Care Code Status: Full Code Critical Care: Yes Time Spent Managing PTS Care (In Minutes): 55 <Zarina Troy - Last Filed: 05/20/23 06:23> Date of Service: 05/20/23 Patient chart was reviewed and patient was seen and examined. AZUL history and physical reviewed as well. Agree with the assessment and plan. Patient presented with atrial fibrillation and we continued on amiodarone drip. Patient's rate is better controlled. We will switch over to amiodarone to p.o. amiodarone today. Patient will continue on low-dose digoxin along with beta- charleen therapy. Most of the MDM was done by myself and plan of care was discussed with AZUL as well as the patient. Plan to discharge in 48 hours. Will switch over to oral medications in the a.m. Plan of care was discussed with cardiology. <Stephanie Melendrez - Last Filed: 05/21/23 10:22>
--- NOTE | 2023-05-20 07:20 | ECHO ---
HEIGHT: 5 ft 9 in WEIGHT: 250 lb 0 oz DATE OF STUDY: 05/19/[address]: Zarina Troy BILL CLERKDaria 2-DIMENSIONAL: YES M.MODE: YES DOPPLER: YES COLOR FLOW: YES TDS: PORTABLE: YES DEFINITY: BUBBLE STUDY: DIAGNOSIS: ACUTE OR CHRONIC HEART FAILURE CARDIAC HISTORY: CATHERIZATION: SURGERY: PROSTHETIC VALVE: PACEMAKER: YES MEASUREMENTS (cm) DIASTOLIC (NORMALS) SYSTOLIC (NORMALS) IVSd 1.2 (0.6-1.2) LA Diam 4.5 (1.9-4.0) LVEF 32% LVIDd 4.8 (3.5-5.7) LVIDs 4.1 (2.0-3.5) %FS 15% LVPWd 1.7 (0.6-1.2) Ao Diam 2.5 (2.0-3.7) 2 DIMENSIONAL ASSESSMENT: RIGHT ATRIUM: ENLARGED LEFT ATRIUM: ENLARGED RIGHT VENTRICLE: NORMAL LEFT VENTRICLE: MILD DILATED TRICUSPID VALVE: MILD TRICUSPID REGURGITATION MITRAL VALVE: SEVERE MITRAL ANNULAR CALCIFICATION, MILD MITRAL REGURGITATION PULMONIC VALVE: NORMAL AORTIC VALVE: BIOPROSTHETIC, MILD PARAVAVULAR LEAK PERICARDIAL EFFUSION: NONE AORTIC ROOT: NORMAL LEFT VENTRICULAR WALL MOTION: SEVERE GLOBAL HYPOKINESIS DOPPLER/COLOR FLOW: DIASTOLIC DYSKINESIS COMMENTS: 1. ENLARGED LEFT AND RIGHT ATRIUM 2. MILD DIALTED LEFT VENTRICULAR FILLING CAVITY WITH SEVERE REDUCED LEFT VENTRICULAR SYSTOLIC FUNCTION, EJECTION FRACTION 10-15%, SEVERE GLOBAL HYPOKINESIS 3. MILD REDUCED RIGHT VENTRICULAR FUNCTION, PACEMAKER LEAD SEEN IN RIGHT VENTRICLE. 4. NORMAL BIOPROSTHETIC AORTIC VALVE (DOPPLER VELOSITY INDEX 0.5), MILD PARAVAVULAR LEAK 5. ELEVATED RIGHT ATRIAL FILLING PRESSURE (GREATER THAN 20 mmHg), MODERATE PULMONARY HYPERTENSION (RIGHT VENTRICULAR SYSTOLIC PRESSURE 45-50 mmHg) TECHNOLOGIST: [facility]
[2023-05-20] MEDS: POTASS/SODIUM PHOSPHATE 1 PKT POWD.PACK PO SCH (08:00)
[2023-05-20] MEDS ORDERED: CEFTRIAXONE 2000 MG/VIAL ONE (08:22)
[2023-05-20] MEDS ORDERED: NA CHLORIDE 0.9% 100 ML ONE (08:23)
[2023-05-20] MEDS: CEFTRIAXONE 2,000 MG in NA CHLORIDE 0.9% 100 ML IV SCH (08:29)
--- NOTE | 2023-05-20 12:11 | P.PN ---
Subjective Date of Service: 05/20/23 Chief Complaint: A-fib RVR Subjective: New changes (Patient HR is better controlled, feels better.) Review of Systems 10-point ROS is otherwise unremarkable Physical Examination - Vital Signs Temperature: 96.7 F Blood Pressure: 115/65 Pulse: 107 Respirations: 18 Pulse Ox (%): 98 - Physical Exam General: Alert, Oriented x3 HEENT: Atraumatic Neck: Supple, JVD not distended Respiratory: Clear to auscultation bilaterally Cardiovascular: No edema, Irregular heart rate/rhythm Gastrointestinal: Normal bowel sounds Assessment And Plan - Current Problems (Diagnosis) (1) Atrial fibrillation with rapid ventricular response Current Visit: Yes Status: Acute Plan: Amiodarone 200 mg po BID Stop amiodarone drip. digoxin 0.125 mg daily Continue Metoprolol 100 mg po BID (Hold if systolic BP is less than 100 mmHg) Continue Eliquis 5 mg po BID Patient daughter mention that they were told recently that he have a thrombus in the heart but not sure where so cardioversion is not an option at this time (2) Acute on chronic combined systolic and diastolic heart failure Current Visit: Yes Status: Acute Plan: Continue Bumex 1 mg PO BID. Monitor input and output. Correct electrolytes. (3) S/P TAVR (transcatheter aortic valve replacement) Current Visit: Yes Status: Acute Plan: Echo shows normal functioning valve with mild para valvular leak.
[2023-05-20] MEDS ORDERED: AMIODARONE HCL 200 MG TAB ONE ×2 (12:17→20:24)
[2023-05-20] MEDS ORDERED: DIGOXIN 0.25 MG TABLET ONE (12:17)
[2023-05-20] MEDS: AMIODARONE HCL 200 MG TAB PO SCH (12:25)
[2023-05-20] MEDS: DIGOXIN 0.125 MG TABLET PO SCH (12:25)
[2023-05-20] MEDS: BUMETANIDE 1 MG TABLET PO SCH ×2 (12:26→21:12)
--- NOTE | 2023-05-20 12:58 | PN ---
Date of Progress Note: 05/20/2023 Subjective: The patient was admitted with atrial fibrillation with RVR, acute kidney injury secondar y to cardiorenal. The patient had advanced congestive heart failure with ejection fraction of 10%. Physical Examination: VITAL SIGNS: Blood pressure 115/65, pulse of 107, afebrile. CHEST: Faint rales at bilateral base. Heart: S1, S2. Systolic murmur. Tachy. Abdomen: Soft, nontender. Extremities: No edema. NEUROLOGIC: Alert. No focality. Laboratory Data: Hemoglobin 11.1. Sodium 138, potassium 4.6, bicarb 31, BUN 24, creatinine down to 1.3. GFR 52. Iron saturation of 7. Ferritin of 102. Current Medications: The patient is on include aspirin, ceftriaxone, Eliquis, amiodarone, metoprolol 100 b.i.d., Bumex, levothyroxine, KCl. Assessment And Plan: 1.Acute kidney injury secondary to cardiorenal normal volume. Obstructive uropathy has been ruled o ut with ultrasound. Good urine output. Kidney function on the recovery. I agree with current dose of Bumex and we will continue to monitor. Given the cardiac history, I am going to add spironolacton e. 2.Hypokalemia. We will add spironolactone. Hold supplement. 3.Hyponatremia, dilutional. Continue Bumex. 4.Congestive heart failure, normal volume currently. Continue current diuresis dose. 5.Atrial fibrillation with RVR. Follow up with Cardiology. 6.Left ventricular thrombi as by Cardiology. DEB/JOSE Voice ID: [id number] Report ID: [id number]
[2023-05-21 04:49] LABS: Absolute Eosinophils 0.1 K/uL (0-0.5); Absolute Lymphocytes (CBC) 0.8 K/uL (0.7-4.9); Absolute Monocytes 0.7 K/uL (0.1-1.3); Absolute Neutrophil 11.4 K/uL (1.8-8.0); Basophils % 0.3 % (0-1.3); Eosinophils % 0.9 % (0-4.4); Hematocrit 35.7 % (39.6-49.0); Hemoglobin 11.2 g/dL (13.6-17.9); Lymphocytes % 6.1 % (15.3-44.8); MCH 27.1 pg (27.0-35.0); MCHC 31.4 g/dL (32.0-36.0); MCV 86.2 fL (80-100); MPV 8.6 fL (7.6-11.3); Monocytes % 5.3 % (3.3-12.3); Neutrophils % 87.4 % (41.7-73.7); Platelets 168 thou/uL (152-406); RBC Red Blood Cell Count 4.15 M/uL (4.33-5.43); Red Cell Distribution Width 18.7 % (12.1-15.2)
[2023-05-21 05:20] LABS: Albumin 2.5 g/dL (3.4-5.0); Anion Gap 6.8 mEq/L (5.0-15.0); Magnesium 2.2 mg/dL (1.6-2.4); Phosphorus 2.4 mg/dL (2.5-4.9); Potassium 3.8 mEq/L (3.5-5.1)
[2023-05-21 05:24] VITALS: O2SAT 98
[2023-05-21 05:35] LABS: Digoxin Level 1.43 ng/mL (0.80-2.00)
--- NOTE | 2023-05-21 07:21 | P.PN ---
Subjective Date of Service: 05/21/23 Chief Complaint: A-fib RVR Admitted with A-fib RVR on amiodarone drip, evaluated by cardiology, no reported shortness of breath or chest pain, palpitations, generalized weakness Physical Exam General: Alert, In no apparent distress, Oriented x3 HEENT: Atraumatic, Normocephalic Neck: Supple, 2+ carotid pulse no bruit Respiratory: Normal air movement, Crackles/rales Cardiovascular: Irregular heart rate/rhythm Capillary refill: <2 Seconds Gastrointestinal: Normal bowel sounds, Soft and benign Musculoskeletal: No clubbing, No swelling Integumentary: Other (+1 lower extremity edema) Neurological: Normal speech, Sensation intact Review of Systems per HPI Physical Examination - Vital Signs Temperature: 97.1 F Blood Pressure: 120/67 Pulse: 81 Respirations: 23 Pulse Ox (%): 98 Assessment And Plan - Plan Assessment plan A-fib RVR uncontrolled rate Chronic anticoagulation History of a permanent pacemaker Admit to ICU, cardiology consult, amiodarone drip, IV metoprolol, resume p.o. medications. card recommnendations Continue Digoxin load then continue digoxin 0.125 mg daily Continue Metoprolol 100 mg po BID (Hold if systolic BP is less than 100 mmHg) Continue Eliquis 5 mg po BID Transition to amiodarone 200 mg p.o. twice daily NSTEMI Acute on chronic combined systolic and diastolic heart failure improving S/P TAVR (transcatheter aortic valve replacement) Current Visit: Yes Status: Acute Elevated BNP Echo ordered No reported chest pain, abdominal pain, fever, nausea vomiting diarrhea, dizziness. Plan to admit for A-fib RVR with uncontrolled rate, acute on chronic heart failure, dyspnea secondary to decompensated heart failure. With card iology to consult. presents to the emergency room with generalized weakness. He reports weakness x 4 weeks, progressively getting worse, he reports shortness of breath, worse with exertion. He reports bilateral lower extremity edema +1-2 work worse over the last couple weeks. He reports lives with his daughter, ambulates with a cane at baseline. ER evaluation patient was EKG A-fib rate 160, treated with metoprolol IV push, ineffective, started on amiodarone drip. elevated BNP 29059, -> diuresis as tolerated, repeat 48109, improving 17.020, Bumex 1 mg twice daily->10,589 initial troponin normal at 41,-> 59, 65, 84, chest x-ray no acute intrathoracic process moderate cardiomegaly multilead pacer device present hypothyroidism hypertension hyperlipidemia primary urethral carcinoma Resume appropriate home meds Follow-up with urology/oncology Acute kidney injury Unknown baseline secondary to prerenal CHF, versus diuretic use improving BUN 1.31 estimated GFR 54 ->BUN 18/cr 1.09 Nephrology consulted for diuresis leukocytosis likely acute cystitis WBC 15.10, left shift 86.6 Trend WBCs empiric UA, urine culture microcytic anemia Hemoglobin 9.1 30.7 Full code DVT resume Eliquis Diet cardiac Disposition Home with daughter, ambulates with a cane at baseline Discharge Plan: Home - Code Status/Comfort Care Code Status: Full Code Critical Care: Yes Time Spent Managing PTS Care (In Minutes): 55
[2023-05-21] MEDS ORDERED: CEFTRIAXONE 2000 MG/VIAL ONE (07:32)
[2023-05-21] MEDS ORDERED: NA CHLORIDE 0.9% 100 ML ONE (07:32)
[2023-05-21] MEDS ORDERED: AMIODARONE HCL 200 MG TAB ONE (07:32)
[2023-05-21] MEDS: POTASS/SODIUM PHOSPHATE 1 PKT POWD.PACK PO SCH (07:50)
[2023-05-21] MEDS: SPIRONOLACTONE 25 MG TABLET PO SCH (07:51)
--- NOTE | 2023-05-21 11:59 | EKG ---
Test Date: 2023-05-18 Test Time: 11:52:51 Java Xml Developer: OSCAR MEASUREMENT RESULTS: Intervals: Rate: 151 [place]: QRSD: 132 QT: 268 QTc: 424 [place]: P: IL: QRS: 139 T: -39 INTERPRETIVE STATEMENTS: Atrial fibrillation Nonspecific intraventricular block T wave abnormality, consider inferior ischemia or digitalis effect Abnormal ECG No previous ECG available for comparison Electronically Signed On 05-21-23 11:54:53 CDT by Omar Briceno
[2023-05-21 12:54] VITALS: BP 120/67; TEMP 97.1
--- NOTE | 2023-05-21 13:38 | PN ---
Date of Progress Note: 05/21/2023 Subjective: Seen by bedside, is doing well from the cardiac standpoint. His heart rate is controlle d now and he is on Eliquis, amiodarone, and beta-charleen. Denies having any chest pain. Mildly shor t of breath, but with improvement in orthopnea. No nausea, vomiting, diarrhea. Review of Systems: All systems were reviewed and they were negative except mentioned above. Physical Examination: Vital Signs: Reviewed. Head and Neck: Pupils are equal, reactive to light. Intact eye movements. No JVD. No cervical lym phadenopathy. Neck is supple. Thyroid is not enlarged. Lungs: Clear to auscultation bilaterally. No rhonchi, wheezing, or crackles. No accessory muscle u se. Heart: Irregularly irregular. No extra sounds. Abdomen: Soft, nontender. Bowel sounds positive. No organomegaly. No masses or hernia. No rigidi ty or rebound. Extremities: Trace edema bilaterally. No clubbing or cyanosis. Intact pulses. Skin: No rash. No nodule. Neurologic: Alert, awake, oriented x3. No acute focal deficits appreciated. Investigations: BUN 18, creatinine is 1.09. Assessment/recommendation: 1.Atrial fibrillation with rapid ventricular response. Now rate is controlled. Continue amiodarone and metoprolol and Eliquis. 2.Acute on chronic systolic heart failure exacerbation, appears to be doing better. Continue with c urrent diuresis. 3.Aortic valve stenosis, status post TAVR. Normally functioning bioprosthesis on echo. Continue cu rrent management. 4.Elevated troponin. No chest pain. This is demand. The patient will need a stress test which can be done as an outpatient. SR/MODL Voice ID: [id number] Report ID: [id number]
--- NOTE | 2023-05-22 01:08 | PN ---
Date of Progress Note: 05/21/2023 Chief Complaint: Acute kidney injury secondary to cardiorenal syndrome. Subjective: The patient is feeling better. He denies PND, orthopnea. Denies cough, palpitation. Physical Examination: Lungs: Clear to auscultation bilaterally. Heart: S1, S2. 2/6 systolic murmur. Abdomen: Soft, benign, nontender. Extremities: No edema. Impression And Plan: 1.Acute kidney injury secondary to cardiorenal syndrome. The patient responded to treatment. Urine output has improved. Volemia is controlled. Renal function is improving. The patient is to contin ue Bumex with maintenance dose for volume control. 2.Hypokalemia. The patient was started on spironolactone. He needs a close followup with Nephrolog y, and I discussed with the patient to call Nephrology office and schedule a followup as soon as poss ible. 3.Hyponatremia, dilutional due to cardiorenal syndrome. Continue Bumex. 4.Congestive heart failure with exacerbation. Continue diuretics. 5.Atrial fibrillation with rapid ventricular response. Follow up with Cardiology. 6.Left ventricular thrombi. Management per Cardiology. SUJIT/JOSE Voice ID: [id number] Report ID: [id number]
== END 2023-05-21 16:07 | disposition home or self-care (01) | DRG 308 ==
LOC: ER 11:47 → ERHOLD 14:23 → 3RD-ICU 05-19 15:27 → 4TH 05-21 11:00
PROVIDERS: ADMIT Hospitalist; ATTEND Hospitalist
DX: I48.91 Unspecified atrial fibrillation (principal); I50.43 Acute on chronic combined systolic (congestive) and diastolic (congestive) heart failure; N17.9 Acute kidney failure, unspecified; C68.0 Malignant neoplasm of urethra; E87.1 Hypo-osmolality and hyponatremia; I24.89 Other forms of acute ischemic heart disease; N30.01 Acute cystitis with hematuria; I11.0 Hypertensive heart disease with heart failure; E87.6 Hypokalemia; E03.9 Hypothyroidism, unspecified; E78.5 Hyperlipidemia, unspecified; D50.9 Iron deficiency anemia, unspecified; Z95.0 Presence of cardiac pacemaker; Z95.2 Presence of prosthetic heart valve; Z79.82 Long term (current) use of aspirin; Z79.01 Long term (current) use of anticoagulants; Z79.899 Other long term (current) drug therapy; Z79.890 Hormone replacement therapy
CPT/HCPCS: 36415; 71045; 76770; 80048; 80061; 80069; 80076; 80162; 81001; 82533; 82570; 82607; 82728; 83540; 83735; 83880; 83970; 84156; 84165; 84439; 84443; 84466; 84484; 84550; 85025; 85044; 87077; 87086; 87088; 87186; 93005; 93306; 96365; 96366; 96375; 99285; J0282; J0696; J1160; J1940; J3480; J7040; J7060